=== PATIENT | male | born 1975 | race Caucasian/White ===

== ENCOUNTER → 2021-10-01 | Outpatient (CLI) | payer BC ==
--- NOTE | 2021-10-01 08:40 | CT ---
EXAMINATION TYPE: CT wrist RT wo con DATE OF EXAM: 10/01/2021 COMPARISON: None HISTORY: Rt radius fracture CT DLP: 118.[address] of the right wrist with reconstruction imaging. TECHNIQUE: Unenhanced CT of the right breast was performed with bone and soft tissue window settings submitted in the axial coronal and sagittal planes. At a separate workstation [id number] TR imaging was obt ained. FINDINGS: There is moderately comminuted distal radial fracture with intra-articular extension. Displaced dorsa l component is noted with displacement measuring 3.6 mm. There is ulnar styloid fracture component se en. No additional fractures are seen within the [id number]. Surrounding soft tissue swelling noted . IMPRESSION: 1. Moderately comminuted distal radial fracture with intra-articular extension. Ulnar styloid fractur e component noted as well.
== END | disposition home or self-care (01) ==
LOC: RADCTMAIN 06:54
PROVIDERS: ATTEND Orthopaedic Surgery
DX: S52.571A Other intraarticular fracture of lower end of right radius, initial encounter for closed fracture (principal); S52.611A Displaced fracture of right ulna styloid process, initial encounter for closed fracture